=== PATIENT | female | born 1950 ===

== ENCOUNTER 2016-10-02 05:58 | Inpatient (IN) | payer OTHER ==
[2016-09-19 10:30] LABS: % IMMATURE GRANULYOCYTES 0.3 % (0.0-1.1); ABSOLUTE IMMATURE GRANULOCYTES 0.02 10^3/uL (0.00-0.10); ADD DIFF? NO; ADD MORPH? NO; ADD SCAN? NO; ATYPICAL LYMPHOCYTE FLAG 20 (0-99); FRAGMENT RBC FLAG 0 (0-99); HEMATOCRIT 42.2 % (38.0-47.0); HEMOGLOBIN 13.9 g/dL (12.6-16.3); LEFT SHIFT FLG 0 (0-99); LIPEMIA HEMOLYSIS FLAG 80 (0-99); MEAN CELL HEMOGLOBIN 28.3 pg (27.9-34.1); MEAN CELL HEMOGLOBIN CONCENTR. 32.9 g/dL (32.4-36.7); MEAN CELL VOLUME 85.9 fL (81.5-99.8); MEAN PLATELET VOLUME 10.2 fL (8.7-11.7); PLATELET CLUMPS FLAG 0 (0-99); PLATELET COUNT 247 10^3/uL (150-400); RED BLOOD CELL COUNT 4.91 10^6/uL (4.18-5.33); RED CELL DISTRIBUTION WIDTH 14.1 % (11.5-15.2)
[2016-10-02] MEDS ORDERED: TRANEXAMIC ACID 3,000 MG in NS 50 ML IRR ONE (06:00)
[2016-10-02] MEDS ORDERED: ROPI/epiNEPH/KETOROLAC JOINT COCKTAIL IU ONE (06:00)
[2016-10-02] MEDS ORDERED: DEXAMETHASONE 4 MG/ML VIAL IVP ONE (06:00)
[2016-10-02] MEDS ORDERED: FAMOTIDINE 20 MG TAB PO ONE (06:00)
[2016-10-02] MEDS ORDERED: CEFAZOLIN 2 GM/DEXTR 100 ML IV ONE (06:00)
[2016-10-02] MEDS ORDERED: ACETAMINOPHEN 325 MG TAB PO ONE (06:00)
[2016-10-02] MEDS ORDERED: CHLORHEXIDINE GLUC HIBICLENS 118 ML BTL TP ONE (06:00)
[2016-10-02] MEDS ORDERED: LIDOCAINE 1% 5 ML SDV ID PRN (06:35)
[2016-10-02] MEDS ORDERED: LR 1,000 ML IV ONE (06:35)
[2016-10-02] MEDS ORDERED: VANCOMYCIN 1 GM VIAL ONE (06:41)
[2016-10-02] MEDS ORDERED: TRANEXAMIC ACID 3,000 MG/50 ML BAG IRR ONE (06:41)
[2016-10-02] MEDS ORDERED: MIDAZOLAM 2 MG/2 ML VIAL ONE ×2 (08:41→08:49)
[2016-10-02] MEDS ORDERED: SCOPOLAMINE HYDROBROMIDE 1.5 MG PATCH TD ONE (08:48)
[2016-10-02] MEDS ORDERED: PROPOFOL/EMULSION 500 MG/50 ML BOTTLE IV ONE (08:49)
[2016-10-02] MEDS ORDERED: ONDANSETRON 4 MG/2 ML VIAL ONE (09:30)
[2016-10-02] MEDS ORDERED: fentaNYL 100 MCG/2 ML INJ ONE ×2 (10:28→11:06)
--- NOTE | 2016-10-02 10:36 | POSTOPPROG ---
Post Op Note Date of Operation: 10/02/16 Surgeon: Phani Dumont Hog Scalder: angelo dumont Anesthesiologist: dr. villasenor Anesthesia: Spinal, Other (Specify) (adductor canal block) Pre-op Diagnosis: Left knee OA Post-op Diagnosis: same Indication: left knee pain due to OA that failed conservative measures Procedure: L TKA Findings: severe knee OA Inf/Abcess present in the surg proc area at time of surgery?: No EBL: 50-100
[2016-10-02] MEDS ORDERED: PHARMACY PAIN CONSULT 1 EA MISC PRN (10:37)
[2016-10-02] MEDS ORDERED: BISACODYL 10 MG SUPP PR PRN (10:37)
[2016-10-02] MEDS ORDERED: POLYETHYLENE GLYCOL 3350 17 GM PKT PO PRN (10:37)
[2016-10-02] MEDS ORDERED: PROMETHAZINE HCL 25 MG SUPPR PR PRN (10:37)
[2016-10-02] MEDS ORDERED: PROMETHAZINE HCL 25 MG/ML INJ IVP PRN (10:37)
[2016-10-02] MEDS ORDERED: DIPHENOXYLATE/ATROPINE LOMOTIL 1 TAB PO PRN (10:37)
[2016-10-02] MEDS ORDERED: METOCLOPRAMIDE 10 MG/2 ML VIAL IVP PRN (10:37)
[2016-10-02] MEDS ORDERED: diphenhydrAMINE 25 MG CAP PO PRN (10:37)
[2016-10-02] MEDS ORDERED: oxyCODONE IR 5 MG TAB PO PRN (10:37)
[2016-10-02] MEDS ORDERED: ONDANSETRON DISINTEGRATING 4 MG TAB PO PRN (10:37)
[2016-10-02] MEDS ORDERED: ONDANSETRON 4 MG/2 ML VIAL IVP PRN (10:37)
[2016-10-02] MEDS ORDERED: LACTULOSE 20 GM/30 ML UDCUP PO PRN (10:37)
[2016-10-02] MEDS ORDERED: MAGNESIUM HYDROXIDE 30 ML UDCUP PO PRN (10:37)
[2016-10-02] MEDS ORDERED: TEMAZEPAM 15 MG CAP PO PRN (10:37)
[2016-10-02] MEDS ORDERED: CYCLOBENZAPRINE 10 MG TAB PO PRN (10:37)
[2016-10-02] MEDS ORDERED: LR 1,000 ML IV SCH (11:00)
[2016-10-02] MEDS: ACETAMINOPHEN 325 MG TAB PO SCH ×2 (13:22→17:57)
[2016-10-02] MEDS: ceFAZolin 2 GM/DEXTROSE 100 ML IV SCH (16:31)
[2016-10-02] MEDS: SENNOSIDES/DOCUSATE SODIUM TAB PO SCH (20:53)
[2016-10-02] MEDS: ASPIRIN 325 MG TAB PO SCH (20:53)
[2016-10-02] MEDS: FAMOTIDINE 20 MG TAB PO SCH (20:53)
[2016-10-03] MEDS: ACETAMINOPHEN 325 MG TAB PO SCH ×2 (00:22→05:40)
[2016-10-03] MEDS: ceFAZolin 2 GM/DEXTROSE 100 ML IV SCH (00:22)
[2016-10-03 04:17] VITALS: O2SAT 94
[2016-10-03 05:28] LABS: HEMATOCRIT 35.5 % (38.0-47.0); HEMOGLOBIN 11.9 g/dL (12.6-16.3)
[2016-10-03 07:56] VITALS: BP 137/88; PULSE 76; RESP 15; TEMP 98.5
--- NOTE | 2016-10-03 08:20 | SOAPPROG ---
SOAP Progress Note Assessment/Plan: Assessment: Patient is doing well POD 1 s/p L TKA Pain management: pain is well controlled on oral pain meds. VTE ppx: recommend aspirin daily for 3 weeks, cont KAREN and SCDs Anemia: level is expected initially postop. Asymptomatic. Continue to monitor D/c planning: d/c to home today pending release from PT. Patient states she does not need home health and that her sister can drive her to outpatient PT Plan: 10/03/16 08:19 10/03/16 08:19 Subjective: Mandi is doing well this morning. denies SOB, chest pain and N.V. Objective: Vital Signs Temp Pulse Resp BP Pulse Ox 36.9 C 76 15 137/88 H 94 10/03/16 07:55 10/03/16 07:55 10/03/16 07:55 10/03/16 07:55 10/03/16 04:16 Laboratory Results 10/03/16 04:48 10/02/16 10/03/16 10/04/16 05:59 05:59 05:59 Intake Total 2916 Output Total 1555 Balance 1361 LLE: incision dressing is clean and dry, NVI, +pf/df ICD10 Worksheet Patient Problems: Problems Problem Status Onset Primary localized osteoarthritis of left knee Acute
[2016-10-03] MEDS: ASPIRIN 325 MG TAB PO SCH (08:41)
[2016-10-03] MEDS: FAMOTIDINE 20 MG TAB PO SCH (08:41)
[2016-10-03] MEDS: SENNOSIDES/DOCUSATE SODIUM TAB PO SCH (08:43)
--- NOTE | 2016-10-03 15:46 | GOP ---
[f rep st] OPERATIVE REPORT DATE OF OPERATION: 10/02/2016 SURGEON: Alicia Morse MD TUFT MACHINE OPERATOR: Andra Morse PA-C. ANESTHESIA: Spinal. PREOPERATIVE DIAGNOSIS: Left knee osteoarthritis. POSTOPERATIVE DIAGNOSIS: Left knee osteoarthritis. PROCEDURE PERFORMED: Left total knee arthroplasty. FINDINGS: ESTIMATED BLOOD LOSS: 30 ml INDICATIONS: This is a 66-year-old female with severe and progressive pain and deformity of the lef t knee unresponsive to conservative care. Risks and benefits of the surgical intervention were expla ined in detail. DESCRIPTION OF PROCEDURE: The patient was brought to the operative room and placed on the table in the supine position. Spinal anesthesia was induced without difficulty. A pneumatic tourniquet was ap plied about the left proximal thigh, and the leg was prepped and draped in a sterile fashion. The le g dawn was applied. After exsanguination by elevation the tourniquet was inflated to 275 mm of roma cury. Incision was made anterior medial from the tibial tuberosity to a point 2 cm proximal to the superio r pole of the patella. Medial parapatellar arthrotomy was carried out from the superior pole of the patella and posteriorly in line with the fibers of the Type 2 VMO. The medial collateral ligament wa s elevated and the infrapatellar fat pad was resected. The patella was everted and the articular surface was excised. A 35 mm patellar button was placed. T he distal femoral guide hole was drilled and the 6 degree alignment joanne was placed. A 10 mm distal f emoral cut was made without difficulty. Attention was turned to the tibia and a standard 6 mm cut based on the medial tibial condyle was per formed. The tibial articular surface was excised without difficulty. Attention was turned back to the femur and a size 4 Triathlon femoral cutting block was positioned. Anterior, posterior, and chamfer cuts were made, followed by the intercondylar box cut. The knee was extended and the remnants of the medial and lateral meniscus were excised. The posterio r capsule was injected with ropivacaine, epinephrine and Toradol. A size 4 MIS mini-keel tibial tray was positioned. Trial reduction was then carried out. There was excellent range of motion, alignmen t, and stability using the 11 mm polyethylene. All trials were then removed. The joint was thoroughly irrigated and carefully dried. Two packages o f cement and 2 grams of vancomycin were mixed in the vacuum mixer and placed on the fixation surface s of all surfaces of the components. The components were implanted and all excess cement was thoroug hly removed. The permanent 11 mm polyethylene X3 was placed without difficulty. The tourniquet was deflated and all bleeders were coagulated. The wound was thoroughly irrigated and closed using interrupted sutures of 2-0 Vicryl for the joint capsule. The subcu was closed with 3-0 Vicryl and the skin with 4-0 Monocryl. Dermabond and Steri-Strips were applied followed by a compre ssive dressing. The patient was then moved from the operating room to the recovery room in good cond ition, having tolerated the procedure well. PATHOLOGY: Severe patellofemoral and lateral osteoarthritis. /[id number]/MODL
== END 2016-10-03 11:30 | disposition home or self-care (01) | DRG 470 ==
LOC: F3N 05:58
PROVIDERS: ADMIT Orthopaedic Surgery; ATTEND Orthopaedic Surgery
PROC: 0SRD0J9 Replacement of Left Knee Joint with Synthetic Substitute, Cemented, Open Approach (ICD-10-PCS; principal; 2016-10-02 09:15)
DX: M17.12 Unilateral primary osteoarthritis, left knee (principal)
CPT/HCPCS: 97110-GP; 97116-GP; 97161-GP; 97165-GO; 97530-GP; C1713; G8978-GP-CJ; G8979-GP-CI; G8987-GO-CI; G8988-GO-CI; G8989-GO-CI; J0171; J0690; J1100; J1885; J2250; J2405; J2704; J2795; J3010; J3370

== ENCOUNTER 2017-01-22 05:41 | Inpatient (IN) | payer OTHER ==
[2017-01-22] MEDS ORDERED: ROPIVACAINE 0.2% 80 MG, EPINEPHrine 0.2 MG, KETOROLAC TROMETHAMINE 30 MG in BAG 0 ML IU ONE (06:00)
[2017-01-22] MEDS ORDERED: TRANEXAMIC ACID 3,000 MG in NS 50 ML IRR ONE (06:00)
[2017-01-22] MEDS ORDERED: TRANEXAMIC ACID 3,000 MG/50 ML BAG IRR ONE (06:29)
[2017-01-22] MEDS ORDERED: VANCOMYCIN 1 GM VIAL ONE ×2 (06:29)
--- NOTE | 2017-01-22 07:11 | PDHPUP ---
History & Physical Update H&P update statement: This history and physical update is based on an assessment of the patient which was completed after admission or registration (within 24 hours), but prior to the surgery/procedure. H&P update: H&P reviewed & patient examined, no change in patient's condition since H&P completed
[2017-01-22] MEDS ORDERED: ceFAZolin 2 GM/DEXTROSE 100 ML IV ONE (07:27)
[2017-01-22] MEDS ORDERED: FAMOTIDINE 20 MG TAB PO ONE (07:27)
[2017-01-22] MEDS ORDERED: ACETAMINOPHEN 325 MG TAB PO ONE (07:27)
[2017-01-22] MEDS ORDERED: DEXAMETHASONE 4 MG/ML VIAL IVP ONE (07:27)
[2017-01-22] MEDS ORDERED: LIDOCAINE 1% 2 ML INJ ONE (07:31)
[2017-01-22] MEDS ORDERED: LR 1,000 ML IV ONE (07:36)
[2017-01-22] MEDS ORDERED: LIDOCAINE 1% 2 ML INJ ID PRN (07:36)
--- NOTE | 2017-01-22 07:59 | PDANEPAE ---
ANE History of Present Illness Patient presents for R TKA ANE Past Medical History - Cardiovascular History Hx Hypertension: No Hx Arrhythmias: No Hx Chest Pain: No Hx Coronary Artery / Peripheral Vascular Disease: No Hx CHF / Valvular Disease: No Hx Palpitations: No Cardiovascular History Comment: PVC'S - Pulmonary History Hx COPD: No Hx Asthma/Reactive Airway Disease: No Hx Recent Upper Respiratory Infection: No Hx Oxygen in Use at Home: No Hx Sleep Apnea: No Sleep Apnea Screening Result - Last Documented: Negative - Neurologic History Hx Cerebrovascular Accident: No Hx Seizures: No Hx Dementia: No - Endocrine History Hx Diabetes: No - Renal History Hx Renal Disorders: No - Liver History Hx Hepatic Disorders: No - Neurological & Psychiatric Hx Hx Neurological and Psychiatric Disorders: No - Cancer History Hx Cancer: No - Congenital Disorder History Hx Congenital Disorders: No - GI History Hx Gastrointestinal Disorders: No - Chronic Pain History Chronic Pain: Yes (LEFT HIP, BOTH KNEES AND LOWER BACK) - Surgical History Prior Surgeries: D&C IN HER 20'S. APPENDECTOMY & TONSILLECTOMY A KID ANE Review of Systems Review of Systems: - Exercise capacity METS (RN): 5 METS ANE Patient History - Allergies Allergies/Adverse Reactions: hydrocodone Allergy (Severe, Verified 01/22/17 07:33) Abdominal Pain Sulfa (Sulfonamide Antibiotics) Allergy (Intermediate, Verified 08/23/16 13:50) Rash - Home Medications Home medications: home medication list seen and reviewed Home Medications: Cholecalciferol Vit D3 [Vitamin D3 (*)] 2,000 units PO HS 08/23/16 [Last Taken 01/08/17] Cholecalciferol Vit D3 [Vitamin D3 (*)] 4,000 units PO DAILY 08/23/16 [Last Taken 01/08/17] Herbals/Supplements -Info Only 1 ea PO DAILY 08/23/16 [Last Taken 01/08/17] Multivitamins [Multivitamin (*)] 1 tab PO DAILY 08/30/16 [Last Taken 01/08/17] Aspirin EC [Aspirin EC 81 mg (*)] 81 mg PO HS 12/31/16 [Last Taken 01/15/17] Naproxen Sodium [Aleve 220 MG (*)] 220 mg PO BID 12/31/16 [Last Taken 01/15/17] [place]-3 Fatty Acids [Fish Oil 1000 mg (*)] 1,000 mg PO BID 12/31/16 [Last Taken 01/08/17] - NPO status NPO Status: no food or drink >8 hours - Anes Hx Anes Hx: no prior problems - Smoking Hx Smoking Status: Former smoker - Family Anes Hx Family Hx Anesthesia Complications: none ANE Labs/Vital Signs - Vital Signs Height: 177.8 cm Weight: 71.214 kg ANE Physical Exam - Airway Neck exam: FROM, decreased ROM Mallampati Score: Class 2 Mouth exam: normal dental/mouth exam - Pulmonary Pulmonary: no respiratory distress - Cardiovascular Cardiovascular: regular rate and rhythym - ASA Status ASA Status: II ANE Anesthesia Plan Anesthesia Plan: spinal Regional Anesthesia: single shot NB (RBA discussed)
[2017-01-22] MEDS ORDERED: PROPOFOL/EMULSION 500 MG/50 ML BOTTLE IV ONE (08:01)
[2017-01-22] MEDS ORDERED: fentaNYL 100 MCG/2 ML INJ ONE (08:01)
[2017-01-22] MEDS ORDERED: DEXAMETHASONE 4 MG/ML VIAL ONE (08:07)
[2017-01-22] MEDS ORDERED: ONDANSETRON 4 MG/2 ML VIAL ONE ×2 (08:07→10:37)
[2017-01-22] MEDS ORDERED: SCOPOLAMINE HYDROBROMIDE 1 MG/3 DAYS PATCH TD ONE (08:12)
[2017-01-22] MEDS ORDERED: PHENYLEPHRINE HCL 100 MCG/ML SYR ONE (08:58)
[2017-01-22] MEDS ORDERED: ONDANSETRON 4 MG/2 ML VIAL IVP PRN ×2 (09:19→09:44)
[2017-01-22] MEDS ORDERED: OXYCODONE/APAP 5/325 TAB PO PRN (09:19)
[2017-01-22] MEDS ORDERED: LR 500 ML IV PRN (09:19)
[2017-01-22] MEDS ORDERED: NALOXONE HCL 0.4 MG/ML INJ IVP PRN (09:19)
[2017-01-22] MEDS ORDERED: CYCLOBENZAPRINE 10 MG TAB PO PRN (09:44)
[2017-01-22] MEDS ORDERED: PROMETHAZINE HCL 25 MG SUPPR PR PRN (09:44)
[2017-01-22] MEDS ORDERED: METOCLOPRAMIDE 10 MG/2 ML VIAL IVP PRN (09:44)
[2017-01-22] MEDS ORDERED: diphenhydrAMINE 25 MG CAP PO PRN (09:44)
[2017-01-22] MEDS ORDERED: TEMAZEPAM 15 MG CAP PO PRN (09:44)
[2017-01-22] MEDS ORDERED: DIPHENOXYLATE/ATROPINE LOMOTIL 1 TAB PO PRN (09:44)
[2017-01-22] MEDS ORDERED: ONDANSETRON DISINTEGRATING 4 MG TAB PO PRN (09:44)
[2017-01-22] MEDS ORDERED: BISACODYL 10 MG SUPP PR PRN (09:44)
[2017-01-22] MEDS ORDERED: MAGNESIUM HYDROXIDE 30 ML UDCUP PO PRN (09:44)
[2017-01-22] MEDS ORDERED: PROMETHAZINE HCL 25 MG/ML INJ IVP PRN (09:44)
[2017-01-22] MEDS ORDERED: POLYETHYLENE GLYCOL 3350 17 GM PKT PO PRN (09:44)
[2017-01-22] MEDS ORDERED: LACTULOSE 20 GM/30 ML UDCUP PO PRN (09:44)
--- NOTE | 2017-01-22 09:44 | POSTOPPROG ---
Post Op Note Date of Operation: 01/22/17 Surgeon: Phani Dumont Dovetailer: angelo dumont Anesthesiologist: dr. hidalgo Anesthesia: Spinal, Other (Specify) (adductor canal block) Pre-op Diagnosis: right knee OA Post-op Diagnosis: same Indication: right knee pain due to OA that failed conservative measures Procedure: R TKA Findings: severe knee OA Inf/Abcess present in the surg proc area at time of surgery?: No EBL: 50-100
[2017-01-22] MEDS ORDERED: LR 1,000 ML IV SCH (10:00)
--- NOTE | 2017-01-22 10:16 | POSTANESTH ---
Post Anesthetic Evaluation Cardiovascular Status: Normal, Stable Respiratory Status: Normal, Stable Level of Consciousness/Mental Status: Can Participate in Eval Pain Control: Adequate, Prn Tx Ordered Nausea/Vomiting Control: Adequate, Prn Tx Ordered Complications Possibly Related to Anesthesia: None Noted
[2017-01-22] MEDS: ACETAMINOPHEN 325 MG TAB PO SCH ×3 (12:11→23:40)
[2017-01-22] MEDS: ceFAZolin 2 GM/DEXTROSE 100 ML IV SCH ×2 (15:38→23:40)
[2017-01-22] MEDS: SENNOSIDES/DOCUSATE SODIUM TAB PO SCH (22:00)
[2017-01-22] MEDS: ASPIRIN 325 MG TAB PO SCH (22:00)
[2017-01-22] MEDS: FAMOTIDINE 20 MG TAB PO SCH (22:04)
--- NOTE | 2017-01-23 05:23 | GOP ---
[f rep st] OPERATIVE REPORT DATE OF OPERATION: 01/22/2017 SURGEON: Alicia Morse MD MUSICAL PERFORMER: Andra Morse PA-C ANESTHESIA: Spinal. PREOPERATIVE DIAGNOSIS: Right knee osteoarthritis. POSTOPERATIVE DIAGNOSIS: Right knee osteoarthritis. PROCEDURE PERFORMED: Right total knee arthroplasty. FINDINGS/PATHOLOGY: Severe lateral and patellofemoral osteoarthritis. ESTIMATED BLOOD LOSS: 30 cc. INDICATIONS: This is a 66-year-old female with severe and progressive pain and deformity of the right knee unresponsive to conservative care. Risks and benefits of the surgical intervention were explained in detail. DESCRIPTION OF PROCEDURE: The patient was brought to the operative room and placed on the table in the supine position. Spinal anesthesia was induced without difficulty. A pneumatic tourniquet was applied about the right proximal thigh, and the leg was prepped and draped in a sterile fashion. The leg dawn was applied. After exsanguination by elevation the tourniquet was inflated to 250 mm of mercury. Incision was made anterior medial from the tibial tuberosity to a point 2 cm proximal to the superior pole of the patella. Medial parapatellar arthrotomy was carried out from the superior pole of the patella and posteriorly in line with the fibers of the Type II VMO. The medial collateral ligament was elevated and the infrapatellar fat pad was resected. The patella was everted and the articular surface was excised. A 35 mm patellar button was placed. The distal femoral guide hole was drilled and the 6- degree alignment joanne was placed. A 10 mm distal femoral cut was made without difficulty. Attention was turned to the tibia and a standard 9 mm cut based on the lateral tibial condyle was performed. The tibial articular surface was excised without difficulty. Attention was turned back to the femur and a size 4 Triathlon femoral cutting block was positioned. Anterior, posterior, and chamfer cuts were made, followed by the intercondylar box cut. The knee was extended and the remnants of the medial and lateral meniscus were excised. The posterior capsule was injected with ropivacaine, epinephrine and Toradol. A size 4 MIS mini keel tibial tray was positioned. Trial reduction was then carried out. There was excellent range of motion, alignment, and stability using the 9 mm polyethylene. All trials were then removed. The joint was thoroughly irrigated and carefully dried. Two packages of cement and 2 grams of vancomycin were mixed in the vacuum mixer and placed on the fixation surfaces of all surfaces of the components. The components were implanted and all excess cement was thoroughly removed. The permanent 9 mm polyethylene was placed without difficulty. The tourniquet was deflated and all bleeders were coagulated. The wound was thoroughly irrigated and closed using interrupted sutures of 2-0 Vicryl for the joint capsule. The subcu was closed with 3-0 Vicryl and the skin with 4-0 Monocryl. Dermabond and Steri-Strips were applied followed by a compressive dressing. The patient was then moved from the operating room to the recovery room in good condition, having tolerated the procedure well. /[id number]/MODL MTDD
[2017-01-23] MEDS: ACETAMINOPHEN 325 MG TAB PO SCH (05:29)
[2017-01-23] MEDS: HYDROmorphONE/DILAUDID 2 MG TAB PO PRN ×2 (05:30→09:37)
[2017-01-23 05:36] LABS: HEMATOCRIT 33.4 % (38.0-47.0); HEMOGLOBIN 11.1 g/dL (12.6-16.3)
[2017-01-23 07:52] VITALS: PULSE 60; O2SAT 97
[2017-01-23 07:59] VITALS: BP 119/60; RESP 18; TEMP 98.4
[2017-01-23] MEDS: SENNOSIDES/DOCUSATE SODIUM TAB PO SCH (09:36)
[2017-01-23] MEDS: ASPIRIN 325 MG TAB PO SCH (09:36)
[2017-01-23] MEDS: FAMOTIDINE 20 MG TAB PO SCH (09:37)
--- NOTE | 2017-01-23 09:55 | SOAPPROG ---
SOAP Progress Note Assessment/Plan: Assessment: Edwina is doing well today POD 1 s/p R TKA 1) pain management: pain is well controlled on oral pain meds 2) VTE ppx: recommend aspirin daily for 3 weeks and continue SCDs and KAREN hose 3) Anemia: level expected initially postop, asymptomatic, continue to monitor for symptoms 4) D/c planning: d/c to home today pending release from PT Plan: 01/23/17 09:54 Subjective: patient is doing well today, denies SOB, chest pain and N/V Objective: Vital Signs Temp Pulse Resp BP Pulse Ox 36.9 C 60 18 119/60 97 01/23/17 07:53 01/23/17 07:53 01/23/17 07:53 01/23/17 07:53 01/23/17 07:53 Laboratory Results 01/23/17 05:29 01/22/17 01/23/17 01/24/17 05:59 05:59 05:59 Intake Total 3210 Output Total 1850 Balance 1360 RLE: incision dressing is clean and dry, NVI, +pf/df ICD10 Worksheet Patient Problems: Problems Problem Status Onset Primary localized osteoarthritis of right knee Acute
--- NOTE | 2017-01-23 11:42 | ASDISCHSUM ---
Discharge Information Plan Status:Home with No Needs Medically Cleared to Leave: Discharge Date:01/23/2017 11:27 AM CM D/C Disposition:Home, Routine, Self-Care ADT D/C Disposition:Home, Routine, Self-Care Projected Discharge Date:01/23/2017 11:27 AM Transportation at D/C: Discharge Delay Reason: Follow-Up Date:01/23/2017 11:27 AM Discharge Slot: Final Diagnosis: Placement Information Patient Contact Information Contact Name:JOSEPH Relationship:Sister Address: Work Phone: City: [facility] Phone: State/Zip Code: Email: Financial Information Financial Class: Primary Plan Desc:MEDICARE INPATIENT Primary Plan Number:[id number] Secondary Plan Desc:[employer] PPO HMO OPEN ACC LOCAL Secondary Plan Number:[id number] Assessment Information Intervention Information
--- NOTE | 2017-01-23 13:35 | GDS ---
[f rep st] DISCHARGE SUMMARY ADMISSION DIAGNOSIS: Right knee osteoarthritis. DISCHARGE DIAGNOSIS: Right knee osteoarthritis. PROCEDURE: Right total knee arthroplasty. VTE PROPHYLAXIS: Aspirin recommended 3 weeks daily. BRIEF DESCRIPTION OF HOSPITAL STAY: Patient was admitted for an elective joint arthroplasty. The pa tient tolerated the procedure well and has passed physical therapy. The patient was given appropriat e antibiotic prophylaxis and venous thromboembolism prophylaxis. The patient's pain was well control led on oral pain medication, patient was holding down food, and had urinated. Decision was made to d ischarge the patient. The patient was given post-operative prescriptions pre-operatively. PLAN: Please follow up as scheduled at Dr. Morse office in 3 weeks. /[id number]/MODL
== END 2017-01-23 11:27 | disposition home or self-care (01) | DRG 470 ==
LOC: F3N 05:41
PROVIDERS: ADMIT Orthopaedic Surgery; ATTEND Orthopaedic Surgery
PROC: 0SRC0J9 Replacement of Right Knee Joint with Synthetic Substitute, Cemented, Open Approach (ICD-10-PCS; principal; 2017-01-22 09:15)
DX: M17.11 Unilateral primary osteoarthritis, right knee (principal); Z96.652 Presence of left artificial knee joint
CPT/HCPCS: 97110-GP; 97116-GP; 97161-GP; 97165-GO; C1713; G8978-GP-CI; G8978-GP-CJ; G8979-GP-CI; G8980-GP-CI; G8987-GO-CI; G8989-GO-CH; J0171; J0690; J1100; J1885; J2370; J2405; J2704; J2795; J3010; J3370

== ENCOUNTER 2017-06-11 08:15 | Inpatient (IN) | payer OTHER ==
[2017-06-25] MEDS ORDERED: TRANEXAMIC ACID 3,000 MG in NS (SYRINGE) 50 ML IRR ONE (06:00)
[2017-06-25] MEDS ORDERED: ROPIVACAINE 0.2% 80 MG, EPINEPHrine 0.2 MG, KETOROLAC TROMETHAMINE 30 MG in SYRINGE 0 ML IU ONE (06:00)
[2017-06-25] MEDS ORDERED: ceFAZolin 2 GM/SWFI 2 GM/20 ML SYR IVP ONE (08:10)
[2017-06-25] MEDS ORDERED: FAMOTIDINE 20 MG TAB PO ONE (08:10)
[2017-06-25] MEDS ORDERED: DEXAMETHASONE 4 MG/ML VIAL IVP ONE (08:10)
[2017-06-25] MEDS ORDERED: ACETAMINOPHEN 325 MG TAB PO ONE (08:10)
[2017-06-25] MEDS ORDERED: LIDOCAINE 1% 2 ML INJ ID PRN (08:11)
[2017-06-25] MEDS ORDERED: LR 1,000 ML IV ONE (08:11)
[2017-06-25] MEDS ORDERED: TRANEXAMIC ACID 3,000 MG/50 ML BAG IRR ONE (08:38)
[2017-06-25] MEDS ORDERED: MIDAZOLAM 2 MG/2 ML VIAL ONE (09:34)
[2017-06-25] MEDS ORDERED: MIDAZOLAM 2 MG/2 ML VIAL IVP ONE (09:35)
--- NOTE | 2017-06-25 09:35 | PDANEPAE ---
ANE History of Present Illness eleanor ANE Past Medical History - Cardiovascular History Hx Hypertension: No Hx Arrhythmias: No Hx Chest Pain: No Hx Coronary Artery / Peripheral Vascular Disease: No Hx CHF / Valvular Disease: No Hx Palpitations: No Cardiovascular History Comment: OCCASIONAL PVC'S - Pulmonary History Hx COPD: No Hx Asthma/Reactive Airway Disease: No Hx Recent Upper Respiratory Infection: No Hx Oxygen in Use at Home: No Hx Sleep Apnea: No Sleep Apnea Screening Result - Last Documented: Negative - Neurologic History Hx Cerebrovascular Accident: No Hx Seizures: No Hx Dementia: No - Endocrine History Hx Diabetes: No - Renal History Hx Renal Disorders: No - Liver History Hx Hepatic Disorders: No - Neurological & Psychiatric Hx Hx Neurological and Psychiatric Disorders: No - Cancer History Hx Cancer: No - Congenital Disorder History Hx Congenital Disorders: No - GI History Hx Gastrointestinal Disorders: No - Other Health History Other Health History: DDD. OSTEOARTHRITIS - Chronic Pain History Chronic Pain: Yes (LEFT HIP, BOTH KNEES AND LOWER BACK) - Surgical History Prior Surgeries: RT TOTAL KNEE 12/2016. FALGUNI TOTAL KNEE'S. D&C IN HER . T&A ANE Review of Systems Review of Systems: - Exercise capacity METS (RN): 4 METS ANE Patient History - Allergies Allergies/Adverse Reactions: hydrocodone Allergy (Severe, Verified 01/22/17 07:33) Abdominal Pain Sulfa (Sulfonamide Antibiotics) Allergy (Intermediate, Verified 08/23/16 13:50) Rash celecoxib [From Celebrex] Allergy (Verified 05/22/17 10:28) SEVERE NAUSEA - Home Medications Home Medications: Cholecalciferol Vit D3 [Vitamin D3 (*)] 2,000 units PO HS 08/23/16 [Last Taken 06/18/17] Cholecalciferol Vit D3 [Vitamin D3 (*)] 4,000 units PO DAILY 08/23/16 [Last Taken 06/18/17] Herbals/Supplements -Info Only 1 ea PO DAILY 08/23/16 [Last Taken 06/18/17] [place]-3 Fatty Acids [Fish Oil 1000 mg (*)] 1,000 mg PO BID 12/31/16 [Last Taken 06/18/17] Aspirin [Aspirin 81mg (*)] 81 mg PO HS 05/15/17 [Last Taken 06/18/17] - NPO status NPO Status: no food or drink >8 hours NPO Since - Liquids (Date): 06/25/17 NPO Since - Liquids (Time): 07:00 NPO Since - Solids (Date): 06/24/17 NPO Since - Solids (Time): 22:00 - Smoking Hx Smoking Status: Former smoker - Family Anes Hx Family Hx Anesthesia Complications: none ANE Labs/Vital Signs - Vital Signs Blood Pressure: 126/81 Heart Rate: 68 Respiratory Rate: 14 O2 Sat (%): 95 Height: 175.26 cm Weight: 70.307 kg ANE Physical Exam - Airway Mallampati Score: Class 2 Mouth exam: normal dental/mouth exam - Cardiovascular Cardiovascular: regular rate and rhythym - ASA Status ASA Status: II ANE Anesthesia Plan Anesthesia Plan: spinal
[2017-06-25] MEDS ORDERED: BUPIVACAINE/DEXTROSE 7.5MG/ML 2 ML SPINAL AMP SP ONE (09:41)
[2017-06-25] MEDS ORDERED: PROPOFOL/EMULSION 500 MG/50 ML BOTTLE IV ONE ×2 (09:41→10:45)
[2017-06-25] MEDS ORDERED: LIDOCAINE 2% 5 ML SDV ONE (09:41)
[2017-06-25] MEDS ORDERED: ONDANSETRON 4 MG/2 ML VIAL ONE (09:41)
[2017-06-25] MEDS ORDERED: DEXAMETHASONE 4 MG/ML VIAL ONE (09:41)
[2017-06-25] MEDS ORDERED: HYDROmorphONE/DILAUDID 1 MG/ML INJ IVP PRN (10:32)
[2017-06-25] MEDS ORDERED: ONDANSETRON 4 MG/2 ML VIAL IVP PRN ×2 (10:32→11:06)
[2017-06-25] MEDS ORDERED: NALOXONE HCL 0.4 MG/ML INJ IVP PRN (10:32)
[2017-06-25] MEDS ORDERED: LR 500 ML IV PRN (10:32)
[2017-06-25] MEDS ORDERED: ALBUTEROL 3 ML DEYVIAL IH PRN (10:32)
[2017-06-25] MEDS ORDERED: ONDANSETRON DISINTEGRATING 4 MG TAB PO PRN (11:06)
[2017-06-25] MEDS ORDERED: traMADol 50 MG TAB PO PRN (11:06)
[2017-06-25] MEDS ORDERED: BISACODYL 10 MG SUPP PR PRN (11:06)
[2017-06-25] MEDS ORDERED: PROMETHAZINE HCL 25 MG/ML INJ IVP PRN (11:06)
[2017-06-25] MEDS ORDERED: CYCLOBENZAPRINE 10 MG TAB PO PRN (11:06)
[2017-06-25] MEDS ORDERED: METOCLOPRAMIDE 10 MG/2 ML VIAL IVP PRN (11:06)
[2017-06-25] MEDS ORDERED: TEMAZEPAM 15 MG CAP PO PRN (11:06)
[2017-06-25] MEDS ORDERED: MAGNESIUM HYDROXIDE 30 ML UDCUP PO PRN (11:06)
[2017-06-25] MEDS ORDERED: LACTULOSE 20 GM/30 ML UDCUP PO PRN (11:06)
[2017-06-25] MEDS ORDERED: POLYETHYLENE GLYCOL 3350 17 GM PKT PO PRN (11:06)
[2017-06-25] MEDS ORDERED: PROMETHAZINE HCL 25 MG SUPPR PR PRN (11:06)
[2017-06-25] MEDS ORDERED: diphenhydrAMINE 25 MG CAP PO PRN (11:06)
[2017-06-25] MEDS ORDERED: DIPHENOXYLATE/ATROPINE LOMOTIL 1 TAB PO PRN (11:06)
--- NOTE | 2017-06-25 11:06 | POSTOPPROG ---
Post Op Note Date of Operation: 06/25/17 Surgeon: Phani Dumont [place] Operator: angelo dumont Anesthesiologist: dr. russ Anesthesia: Spinal Pre-op Diagnosis: left hip OA Post-op Diagnosis: same Indication: left hip pain due to OA that failed conservative measures Procedure: L VENU ant approach Findings: severe hip OA Inf/Abcess present in the surg proc area at time of surgery?: No EBL: 100-500
[2017-06-25] MEDS ORDERED: fentaNYL 100 MCG/2 ML INJ ONE (11:23)
[2017-06-25] MEDS: fentaNYL 100 MCG/2 ML INJ IVP PRN ×2 (11:24→11:38)
[2017-06-25] MEDS: ACETAMINOPHEN 325 MG TAB PO SCH ×2 (12:55→19:00)
[2017-06-25] MEDS: ceFAZolin 2 GM/SWFI 2 GM/20 ML SYR IVP SCH (17:05)
[2017-06-25] MEDS: LR 1,000 ML IV SCH (18:07)
[2017-06-25] MEDS: FAMOTIDINE 20 MG TAB PO SCH (21:14)
[2017-06-25] MEDS: ASPIRIN 81 MG CHEWABLE TAB PO SCH (21:14)
[2017-06-25] MEDS: SENNOSIDES/DOCUSATE SODIUM TAB PO SCH (21:39)
--- NOTE | 2017-06-25 22:02 | GOP ---
[f rep st] OPERATIVE REPORT DATE OF OPERATION: 06/25/2017 SURGEON: Alicia Morse MD FINANCIAL MANAGEMENT ANALYST: WERNER Worley ANESTHESIA: Spinal. PREOPERATIVE DIAGNOSIS: Left hip ostearthritis. POSTOPERATIVE DIAGNOSIS: Left hip osteoarthritis. PROCEDURE PERFORMED: Left total hip arthroplasty with x-ray. FINDINGS: ESTIMATED BLOOD LOSS: 200 cc. INDICATIONS: The patient has progressively worsening arthritis of the hip which has failed medical m anagement. The patient understands the treatment options including continued non-operative care and has selected surgical intervention. The patient has decided to undergo total hip arthroplasty via th e direct anterior approach, understanding the risks of the procedure including, but not limited to, n eurovascular injury, infection, persistent pain, component wear and loosening, deep venous thrombosis , pulmonary embolism, limb length inequality, hip instability (including dislocation), and intra-oper ative fractures. DESCRIPTION OF PROCEDURE: After proper identification of the patient including verification and mimi ing the surgical site, the patient was brought to the operating room and placed in the supine positio n. All bony prominences were well padded. Anesthesia was induced without complication and intraveno us prophylactic antibiotics were administered prior to skin incision. The operative leg was placed in the Trumpf Arch table extension and the well leg in a [place]in leg ho lder. The patient was prepped and draped in the usual sterile fashion. The C-arm was draped for int ra-operative fluoroscopy to check acetabular position, femoral component position including leg lengt h and femoral offset. Attention was then drawn to surgical exposure of the hip. An incision was made with a #10 Bard Fay r blade starting 3 cm lateral and 3 cm distal to the anterior superior iliac spine measuring 8-10 cm and coursing distally toward the greater trochanter. The skin and subcutaneous tissues were divided sharply down to the fascia ab. The fascia ab was incised in line with the skin incision exposing the underlying tensor fascia ab muscle. The muscle was bluntly elevated from the fascia and the f irst extracapsular Cobra retractor was placed laterally at the junction of the superior femoral neck and greater trochanter. The lateral femoral circumflex vessels were identified, cauterized, and divi ded with the Aquamantys bipolar cautery. The deep investing fascia of the TFL was divided to allow p ihsan mobilization of the muscle preventing damage during the retraction. The reflected head of the rectus femoris muscle was elevated off the anterior hip capsule and a medial Cobra retractor was plac ed just proximal to the lesser trochanter. The anterior capsulotomy was made sharply from the superolateral acetabulum to the saddle junction of the superior femoral neck and greater trochanter, then coursing inferomedial towards the lesser troc hanter. The retractors were then placed in the intracapsular position for femoral neck osteotomy. C orresponding to pre-operative templating, the osteotomy was made with the oscillating saw carefully p rotecting the greater trochanter and soft tissues. The femoral head was removed from the acetabulum with a corkscrew and confirmed to be severely arthritic with exposed bone, deformity and osteophytes. Similar findings were confirmed in the acetabulum. The Arch table extension was then placed in 40 degrees external rotation. Attention was then drawn to the acetabular preparation. After placement of the anterior and posterio r Cobra retractors outside the labrum and intracapsular, the circumferential labrum was removed sharp ly. The foveal contents were then removed and hemostasis obtained with cautery. The first reamer selected was sized using the removed femoral head. Reaming began with medialization and then commenced in 2 mm increments at 45 degrees of abduction and 15 degrees of anteversion using fluoroscopic navigation. Reaming ceased 1 mm less than the definitive acetabular component and brandee esponded to the pre-operative templating. The final acetabular component was inserted using fluorosc opy to achieve proper orientation yielding excellent purchase and stability in the acetabulum. The f inal acetabular liner was then placed and its seating confirmed. Attention was then turned to the femur. The Arch table extension was placed in extension and adducti on, delivering the osteotomized femoral neck into the wound. A 2-pronged femoral elevator was placed at the calcar and another at the tip of the greater trochanter. The posterolateral capsule was rele ased with cautery allowing mobilization of the femur lateral and anterior for preparation. The exter nal rotators were visualized and preserved. A curette and rongeur were used to open the starting poi nt for broaching. Serial broaching started with the #0 broach and ended with the broach that exhibit ed excellent fit in the proximal femur. A change in pitch during mallet strikes was accompanied by t he inability to advance the broach any further. The trial reduction was performed and fluoroscopic n avigation was utilized to check limb length. Adjustments were made to equalize limb length according ly. After the final trials were accepted they were removed and the wound was copiously lavaged. The femo ral component was seated to the same depth as the final broach and the femoral head was impacted onto the clean trunnion. The hip was then reduced for the final time and once more fluoroscopy was used to check that limb length equality was achieved. The wound was irrigated and closed in layers, the fascia ab with 2-0 Quill, the subcutaneous tissue with 2-0 Quill, and the skin with Dermabond. Sterile dressings were applied. Final sharps and spon ge counts were accurate. The patient was then transferred to a hospital bed and brought to the [facility] room in stable condition. IMPLANTS: Accolade II size 5 at 132. Acetabular component 1 Trident II 54 mm. The liner is a Tride nt X3 at 36 mm. The head is a Biolox Delta 36 mm -2.5. /[id number]/MODL
[2017-06-26] MEDS: ACETAMINOPHEN 325 MG TAB PO SCH ×2 (00:10→05:43)
[2017-06-26] MEDS: ceFAZolin 2 GM/SWFI 2 GM/20 ML SYR IVP SCH (00:11)
[2017-06-26] MEDS: LR 1,000 ML IV SCH (03:48)
[2017-06-26] MEDS: ASPIRIN 81 MG CHEWABLE TAB PO SCH (08:03)
[2017-06-26] MEDS: FAMOTIDINE 20 MG TAB PO SCH (08:04)
[2017-06-26] MEDS: SENNOSIDES/DOCUSATE SODIUM TAB PO SCH (08:04)
[2017-06-26 08:15] VITALS: BP 108/84; PULSE 85; RESP 16; TEMP 98.1; O2SAT 94
--- NOTE | 2017-06-26 15:23 | SOAPPROG ---
SOAP Progress Note Assessment/Plan: Assessment: patient is doing well POD 1 s/p L VENU pain is well controlled DVT ppx: recommend aspirin 81 mg BID Anemia: level expected initially postop d/c planning: d/c to home today Plan: 06/26/17 15:22 Subjective: patient is doing well, denies SOB, chest pain and N/V. Objective: Vital Signs Temp Pulse Resp BP Pulse Ox 36.7 C 85 16 108/84 H 94 06/26/17 08:14 06/26/17 08:14 06/26/17 08:14 06/26/17 08:14 06/26/17 08:14 Laboratory Results 06/26/17 05:01 06/25/17 06/26/17 06/27/17 05:59 05:59 05:59 Intake Total 2881 Output Total 550 Balance 2331 LLE; incision dressing is clean and dry, NVI, +pf/df ICD10 Worksheet Patient Problems: Problems Problem Status Onset Primary localized osteoarthritis of left hip Acute Primary localized osteoarthritis of right knee Acute
== END 2017-06-26 11:20 | disposition home or self-care (01) | DRG 470 ==
LOC: F3N 06-25 07:49
PROVIDERS: ADMIT Orthopaedic Surgery; ATTEND Orthopaedic Surgery
PROC: 0SRB04A Replacement of Left Hip Joint with Ceramic on Polyethylene Synthetic Substitute, Uncemented, Open Approach (ICD-10-PCS; principal; 2017-06-25 10:15)
DX: M16.12 Unilateral primary osteoarthritis, left hip (principal); Z96.653 Presence of artificial knee joint, bilateral
CPT/HCPCS: 97116-GP; 97161-GP; 97165-GO; 97530-GP; 97535-GO; G8978-GP-CJ; G8979-GP-CI; G8987-GO-CI; G8988-GO-CI; G8989-GO-CI; J0171; J0690; J1100; J1885; J2250; J2405; J2550; J2704; J2795; J3010